=== PATIENT | female | born 1965 | race Caucasian/White ===

== ENCOUNTER 2022-01-16 13:43 | Emergency (ER) | payer MEDICAID ==
[2022-01-16] MEDS ORDERED: Ketorolac 30 MG/ML SDV IM ONE (14:03)
== END 2022-01-16 15:10 | disposition home or self-care (01) ==
LOC: FB.ED 13:43
DX: G89.29 Other chronic pain (principal); M54.50 Low back pain, unspecified; Z88.8 Allergy status to other drugs, medicaments and biological substances
CPT/HCPCS: 99282; 99283